=== PATIENT | female | born 2000 | race Caucasian/White ===

== ENCOUNTER 2024-12-26 10:29 | Emergency (ER) | payer BC ==
[~2024-12-26] VITALS: Ht 162.6 cm; Wt 103.9 kg
[2024-12-26] MEDS ORDERED: SODIUM CHLORIDE 0.9% 1,000 ML IV PRN (10:45)
[2024-12-26] MEDS ORDERED: RIZATRIPTAN10 M1 PO (10:47)
[2024-12-26] MEDS ORDERED: SPIRONOLACTONE25 MG PO (10:47)
[2024-12-26] MEDS ORDERED: SYEDA 28 TABLE1 EACH PO (10:48)
[2024-12-26] MEDS ORDERED: VENTOLIN HFA18 GM (10:48)
[2024-12-26 11:15] LABS: BASOPHILS 0.9 % (0-2); EOSINOPHILS 1.3 % (0-6); HEMATOCRIT 41.9 % (35.0-50.0); HEMOGLOBIN 13.8 g/dL (12.0-18.0); LYMPHOCYTES 18.5 % (24-44); MCH 25.7 (27-36); MCHC 32.8 g/dl (30-36); MCV 78.4 fl (81-99); MONOCYTES 7.1 % (0-12); NEUTROPHILS 72.2 % (39-80); PLATELET COUNT 387 K/uL (140-440); RBC 5.35 M/ul (4.3-5.7)
[2024-12-26 11:31] LABS: ALBUMIN 3.6 g/dL (3.4-5.0); ALBUMIN/GLOBULIN RATIO 0.77 (1.1-2.4); ANION GAP 11.6 (7-21); BILIRUBIN, TOTAL 0.3 mg/dL (0.2-1.0); BUN/CREATININE RATIO 20.54 (6.0-28.6); CALCIUM 9.7 mg/dL (8.5-10.1); CREATININE, SERUM 0.73 mg/dL (0.55-1.02); POTASSIUM 3.6 mmol/L (3.5-5.1); PROTEIN, TOTAL 8.3 g/dL (6.4-8.2)
[2024-12-26 13:11] VITALS: BP 116/78
--- NOTE | 2024-12-27 13:57 | EKG ---
[facility] [address] [facility] [facility] [place], [place] [address] Signed Sinus rhythm with marked sinus arrhythmia Otherwise normal ECG Confirmed by Ge Ann MD ([id number]) on 12/27/2024 1:57:12 PM Electronically Signed By: GE ANN MD 12/27/24 1357 PATIENT NAME: MELBA MIGUEL Electrocardiogram DATE OF : [birth year] PHYSICIAN: GE ANN MD REPORT #: [id number] REPORT IS CONFIDENTIAL AND NOT TO BE RELEASED WITHOUT AUTHORIZATION
== END 2024-12-26 13:15 | disposition home or self-care (01) ==
LOC: ED 10:29
PROVIDERS: Emergency Medicine
DX: R55 Syncope and collapse (principal); Z87.891 Personal history of nicotine dependence; Z79.899 Other long term (current) drug therapy
CPT/HCPCS: 36415; 70450; 70496; 70498; 80053; 84703; 85025; 93005; 93010; 99284-25; Q9967